=== PATIENT | male | born 1985 | race African-American/Black ===

== ENCOUNTER 2020-08-15 14:04 | Outpatient (REF) | payer OTHER, SELFPAY ==
[2020-08-15 14:27] LABS: COVID-19 Test Negative (Negative); IDNOW Serial# 55D5AD1C
== END 2020-08-15 14:05 | disposition home or self-care (01) ==
LOC: HO.LAB 14:04
PROVIDERS: Visit Provider Internal Medicine
DX: Z20.822 Contact with and (suspected) exposure to COVID-19 (principal)
CPT/HCPCS: 36415; 87635; C9803

== ENCOUNTER 2021-01-30 08:12 | Outpatient (REF) | payer OTHER, SELFPAY ==
[2021-01-30 08:53] LABS: COVID-19 Test Negative (Negative)
== END 2021-01-30 08:13 | disposition home or self-care (01) ==
LOC: HO.LAB 08:12
PROVIDERS: Visit Provider Internal Medicine
DX: Z20.822 Contact with and (suspected) exposure to COVID-19 (principal)
CPT/HCPCS: 36415; 87635; C9803